=== PATIENT | female | born 1935 | race Caucasian/White ===

== ENCOUNTER 2022-05-04 17:27 | Emergency (ER) | payer MEDICARE, SELFPAY ==
[2022-05-04] VITALS (7 sets, daily range): BP systolic 122–171; BP diastolic 67–77; PULSE 60–95; RESP 18–33; TEMP 36.8; O2SAT 94–98
--- NOTE | ~2022-05-04 | CT_ITS ---
EXAMINATION: CT abdomen pelvis w con DATE: 05/04/2022 19:52 INDICATION: Epigastric abdominal pain. TECHNIQUE: Computed tomography (CT) of the abdomen and pelvis was performed with 100 mL Omnipaque 350 intravenous contrast. Automated exposure control and iterative reconstruction technique were employe d. The dose-length product was 622.68 mGy-cm. COMPARISON: CT abdomen and pelvis 02/13/2013, chest CT 02/21/2015 FINDINGS: The visualized portions of the lung bases demonstrate mild atelectasis. No pleural effusion . The heart size is normal. There is a small pericardial effusion. There is a 14 mm cyst in the liver . There are changes of cholecystectomy. The spleen, pancreas, and adrenal glands are normal. There ar e cysts in the kidneys measuring up to 15 mm on the right. There is diverticulosis of the colon witho ut evidence of diverticulitis. The appendix is not visualized. There are no dilated loops of bowel. T here is a small volume of ascites. There is a right hip arthroplasty. There is severe lumbar spondylo sis and moderate thoracic spondylosis. IMPRESSION: 1. Small volume of ascites. 2. Chronic small pericardial effusion. Reviewed, dictated and finalized at location A.
[2022-05-04 17:46] LABS: Basophils Absolute Auto 0.1 K/mm3 (0.0-0.1); Basophils Percent Auto 0.5 % (0.2-1.2); Eosinophils Percent Auto 0.3 % (0-4.4); Hematocrit 49.1 % (37.0-47.0); Hemoglobin 16.3 g/dL (12.0-15.0); Immature Granulocyte Absolute 0.04 K/mm3 (0.00-0.031); Immature Granulocyte Percent A 0.4 % (0-0.5); Lymphocytes Absolute Auto 0.77 K/mm3 (0.9-3.2); Lymphocytes Percent Auto 6.9 % (18.3-44.2); Mean Corpuscular HGB Conc 33.2 g/dl (32-36); Mean Corpuscular Hemoglobin 32.7 pg (26-34); Mean Corpuscular Volume 98.4 fl (80-100); Mean Platelet Volume 8.9 fl (7.4-10.4); Monocytes Absolute Auto 0.6 K/mm3 (0.1-0.6); Monocytes Percent Auto 5.6 % (2.6-8.5); Neutrophils Absolute Auto 9.7 K/mm3 (1.3-6.7); Neutrophils Percent Auto 86.3 % (45.5-73.1); Platelet Count Result 308 k/mm3 (150-375); Red Blood Count 4.99 M/mm3 (4.2-5.4); Red Cell Distribution Width 12.9 % (11.5-14.5); White Blood Count 11.2 K/mm3 (4.5-10.0)
[2022-05-04 18:03] LABS: Alanine Aminotransferase 24 U/L (6-35); Albumin Level 4.3 g/dL (3.5-5.1); Alkaline Phosphatase 73 U/L (38-126); Anion Gap 6 mmol/L (8-16); Aspartate Amino Transferase 25 U/L (14-36); Bilirubin,Total 0.6 mg/dL (0.2-1.3); Blood Urea Nitrogen 14 mg/dL (7-17); Calcium 9.4 mg/dL (8.4-10.2); Carbon Dioxide 28 mmol/L (22-30); Chloride 103 mmol/L (98-107); Estimated CRCL calculation 37 ml/min; Estimated Glomerular Filt Rate 59; Glucose 188 mg/dL (65-110); Lipase 62 U/L (23-300); Potassium 4.3 mmol/L (3.4-5.0); Sodium 137 mmol/L (137-145)
[2022-05-04 19:00] LABS: Appearance Urine Cloudy (Clear); Bilirubin Urine Negative (Negative); Blood Urine Negative (Negative); Color Urine Yellow (Yellow); Glucose Urine UA Negative (Negative); Ketones Urine Negative (Negative); Leukocyte Esterase Ur 3+ LEU/UL (Negative); Nitrate Urine Negative (Negative); Protein Urine Negative (Negative); Urobilinogen Urine 0.2 mg/dL (<2.0)
[2022-05-04 19:10] LABS: Bacteria Urine Trace /hpf; Mucus Urine Rare /lpf; Squamous Epithelial Cell Urine Many /hpf (Few); WBC Urine >75 /hpf
[2022-05-04 19:12] LABS: Add Urine Microscopic? YES
--- NOTE | 2022-05-04 19:18 | ED.GENADULT ---
HPI - General Adult General Chief complaint: Abdominal Pain Stated complaint: abd pain Time Seen by Provider: 05/04/22 18:06 Source: patient Mode of arrival: ambulatory Limitations: no limitations History of Present Illness HPI narrative: Patient is an 86-year-old female who presents to the ED with report of epigastric abdominal pain. Patient reports pain began last night and seems contraction-like, occurring every few minutes. Pain occurred more frequently last night, but is now occurring every 10 or so minutes. States she has had 7 episodes of pain in the last hour currently. Does report an episode of nausea and vomiting earlier today after trying to drink water. Still feeling nauseous currently. Diarrhea 2 days ago, small bowel movement this morning which was formed. Does note history of IBS. No fevers, rectal bleeding, urinary symptoms. Related Data Home Medications Medication Instructions Recorded Confirmed amlodipine 2.5 mg tablet 2.5 mg PO DAILY 05/12/21 levothyroxine 88 mcg capsule 88 mcg PO DAILY 05/12/21 Allergies Allergy/AdvReac Type Severity Reaction Status Date / Time codeine Allergy Unknown Nausea and Verified 05/04/22 19:30 Vomiting morphine AdvReac Unknown NAUSEA Verified 05/04/22 19:30 MEPERIDINE HCL AdvReac Severe NAUSEA AND Uncoded 05/04/22 19:30 VOMITING Review of Systems Review of Systems: CONSTITUTIONAL: Denies fever, chills, or sweats. CARDIOVASCULAR: Denies chest pain. RESPIRATORY: Denies dyspnea. GASTROINTESTINAL: Reports epigastric ABD pain, N/V/D. Denies constipation, rectal bleeding. GENITOURINARY: Denies dysuria or hematuria. All systems reviewed & are unremarkable except as noted in HPI and below PMFSH Past Medical History Medical History Arthritis COPD (chronic obstructive pulmonary disease) IBS (irritable bowel syndrome) Thyroid disorder Surgical History Surgical History History of appendectomy History of cholecystectomy History of hernia repair History of hysterectomy Family History Family History Mother Family history of chronic obstructive pulmonary disease Sibling Family history of chronic obstructive pulmonary disease Social History Social History (Updated 05/05/22 @ 03:43 by Piper Burr PA-C) Smoking status: Never smoker Alcohol intake: current Alcohol use details: social Substance use: never Exam Narrative: GENERAL: Elderly, well-nourished, non-toxic, in no acute distress. HEAD: Normocephalic, atraumatic. NECK: Supple. No adenopathy, no masses. RESPIRATORY: Airway patent, respirations nonlabored. Clear to auscultation bilaterally, no rales, rhonchi, wheezing. CARDIOVASCULAR: Regular rate and rhythm without murmurs, rubs, or gallops. Peripheral pulses 2+ and equal bilaterally. ABDOMINAL: Soft, mild tenderness to palpation in epigastric region, nondistended, no hepatosplenomegaly. Normoactive BS. MUSCULOSKELETAL: Moves all extremities. Strength/ROM intact without gross deformities. SKIN: Warm, dry, normal color. No rashes. NEURO: A&O X3. Speech clear. Cranial nerves II-XII grossly intact. Steady gait. No ataxic movements. PSYCHIATRIC: Appropriate mood and affect. Normal interaction. Course Vital Signs Vital signs: Vital Signs Temperature 98.3 F 05/04/22 17:35 Pulse Rate 60 05/04/22 17:35 Respiratory Rate 20 05/04/22 17:35 Blood Pressure 150/70 H 05/04/22 17:35 Pulse Oximetry 98 05/04/22 17:35 Oxygen Delivery Room Air 05/04/22 17:35 Temperature 98.3 F 05/04/22 17:35 Pulse Rate 91 05/04/22 22:02 Respiratory Rate 18 05/04/22 22:02 Blood Pressure 122/67 05/04/22 22:02 Pulse Oximetry 96 05/04/22 22:02 Oxygen Delivery Room Air 05/04/22 17:35 Medical Decision Making [facility] Narrative Medical decision making narrative: Patient
[2022-05-04] MEDS: SODIUM CHLORIDE 0.9% IV 1,000 ML 999 ML IV CONT (19:30)
[2022-05-04] MEDS: ONDANSETRON INJ 4 MG/2 ML VIAL IV PUSH (19:32)
--- NOTE | 2022-05-04 19:39 | PC.NURSE ---
Pt to CT scan via stretcher at this time. Fluids and Tylenol infusing.
== END 2022-05-04 22:09 | disposition home or self-care (01) ==
PROVIDERS: Emergency Medicine; Emergency Provider General Practice; PCP Nurse Practitioner Adult Health
DX: N39.0 Urinary tract infection, site not specified (principal); R18.8 Other ascites; J44.9 Chronic obstructive pulmonary disease, unspecified; M19.90 Unspecified osteoarthritis, unspecified site; K58.9 Irritable bowel syndrome, unspecified; E07.9 Disorder of thyroid, unspecified; Z90.710 Acquired absence of both cervix and uterus
CPT/HCPCS: 36415; 74177; 80053; 81001; 83690; 85025; 87077; 87086; 87088; 96365; 96367; 96375; 99284; J0131; J0696; J2405; J7030; Q9967